=== PATIENT | female | born 1955 | race Caucasian/White ===

== ENCOUNTER 2017-04-23 04:16 | Emergency (ER) | payer OTHER ==
[~2017-04-23 04:16] MED LIST: AMOXICILLIN875 MG PO; ASPIR-TRIN325 MG PO; CARVEDILOL PO; FLEXERIL10 MG PO; GABAPENTIN PO; GLUCOPHAGE500 MG PO; LEVOXYL175 MC1 PO; LIPITOR20 MG PO; LISINOPRIL/HCTZ PO; LOVASTATIN PO; NAPROSYN500 MG PO; PLAQUENIL200 MG PO; PRINIVIL20 M1 PO; TRAMADOL PO; VICODIN PO; XANAX0.5 MG PO; ZANTAC150 MG PO
== END 2017-04-23 08:30 | disposition home or self-care (01) ==
LOC: CED 04:16
DX: R04.0 Epistaxis (principal); I10 Essential (primary) hypertension; E11.9 Type 2 diabetes mellitus without complications; Z90.49 Acquired absence of other specified parts of digestive tract; Z90.710 Acquired absence of both cervix and uterus; Z88.1 Allergy status to other antibiotic agents; Z88.2 Allergy status to sulfonamides; Z79.82 Long term (current) use of aspirin; Z79.899 Other long term (current) drug therapy
CPT/HCPCS: 99283